=== PATIENT | female | born 1950 | race African-American/Black ===

== ENCOUNTER 2020-01-19 11:19 | Emergency (ER) | payer OTHER ==
[2020-01-19 11:30] VITALS: TEMP 98.1; BMI 24.2
[2020-01-19 12:25] LABS: BASO % 0.7 % (0-2.0); HEMATOCRIT 35.7 % (32.4-45.2); HEMOGLOBIN 11.3 GM/dL (10.7-15.3); LYMPH % 41.1 % (8-40); MCH 23.7 pg (25.7-33.7); MCHC 31.7 g/dl (32.0-36.0); MEAN CELL VOLUME 74.8 fl (80-96); MEAN PLT VOLUME 8.8 fl (7.5-11.1); MONO % 10.8 % (3.8-10.2); NEUT % 45.4 % (42.8-82.8); PLATELET COUNT 262 K/MM3 (134-434); RBC 4.77 M/mm3 (3.60-5.2); RDW 15.2 % (11.6-15.6); WHITE BLOOD COUNT 6.8 K/mm3 (4.0-10.0)
[2020-01-19 12:47] LABS: CHLORIDE 103 mmol/L (98-107); SODIUM 139 mmol/L (136-145)
[2020-01-19 12:49] LABS: CALCIUM 8.6 mg/dL (8.5-10.1)
[2020-01-19 12:50] LABS: ALBUMIN 3.6 g/dl (3.4-5.0); ANION GAP 4 MMOL/L (8-16); BLOOD UREA NITROGEN 12.3 mg/dL (7-18); CO2 31 mmol/L (21-32); GLUCOSE,RANDOM 98 mg/dL (74-106)
[2020-01-19 12:53] LABS: CREATININE 0.8 mg/dL (0.55-1.3); SGOT/AST 53 U/L (15-37); SGPT/ALT 94 U/L (13-61)
[2020-01-19 12:54] LABS: BILIRUBIN,TOTAL 0.2 mg/dL (0.2-1)
[2020-01-19 12:55] LABS: TOT PROT 7.7 g/dl (6.4-8.2)
[2020-01-19 12:56] LABS: ALK PHOS 131 U/L (45-117)
[2020-01-19] MEDS ORDERED: ACETAMINOPHEN 325 MG TABLET (FP) PO ONE (13:22)
[2020-01-19] MEDS ORDERED: ACETAMINOPHEN 325 MG TABLET (FP) ONE (13:27)
[2020-01-19 14:55] VITALS: BP 133/68; PULSE 74
== END 2020-01-19 14:55 | disposition home or self-care (01) ==
LOC: JER 11:19
DX: R07.9 Chest pain, unspecified (principal)
CPT/HCPCS: 36415; 71046-TC-FY; 80053; 82550; 84484; 85025; 93005; 93010; 99285-25

== ENCOUNTER 2024-05-03 09:15 | Emergency (ER) | payer OTHER ==
[2024-05-03 09:22] VITALS: BP 147/77; PULSE 86; RESP 16; TEMP 98; BMI 25.0
[2024-05-03 13:32] LABS: HIV INTERPRETATION NEGATIVE (NEGATIVE)
== END 2024-05-03 11:27 | disposition home or self-care (01) ==
LOC: JER 09:15
DX: R51.9 Headache, unspecified (principal)
CPT/HCPCS: 36415; 70450-TC; 86803; 87389; 93005; 93010; 99285-25